=== PATIENT | male | born 1980 | race Caucasian/White ===

== ENCOUNTER 2016-09-04 10:25 | Emergency (ER) | payer OTHER ==
[~2016-09-04] VITALS: Ht 175.3 cm; Wt 109.5 kg
[2016-09-04 10:28] VITALS: Ht 175.3 cm; Wt 109.5 kg
[2016-09-04] MEDS ORDERED: AZITHROMYCIN 250 MG TAB PO ONE (11:00)
[2016-09-04] MEDS ORDERED: LIDOCAINE 1% (MDV) 20 ML INJ IM ONE (11:00)
[2016-09-04] MEDS ORDERED: CEFTRIAXONE 250 MG INJ IM ONE (11:00)
[2016-09-04 11:06] LABS: URINE BLOOD (Dip) POC Negative (NEGATIVE)
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
== END 2016-09-04 11:35 | disposition home or self-care (01) ==
LOC: FTE 10:25
DX: R36.9 Urethral discharge, unspecified (principal); R30.0 Dysuria
CPT/HCPCS: 81003; 87591; 96372; 99284; J0696